=== PATIENT | female | born 1985 | race Caucasian/White ===

== ENCOUNTER 2019-08-30 17:55 | Observation (INO) | payer OTHER ==
[~2019-08-30] VITALS: Ht 167.6 cm; Wt 69.7 kg
[2019-08-30 17:57] VITALS: BP 124/57
[2019-08-30] MEDS ORDERED: LOMOTIL 2.5-0.01 TAB PO (18:02)
[2019-08-30] MEDS ORDERED: DEXAMETHASONE4 MG PO (18:02)
[2019-08-30] MEDS ORDERED: ONDANSETRON ODT8 MG PO (18:03)
[2019-08-30] MEDS ORDERED: ASA81BEC PO (18:03)
[2019-08-30] MEDS ORDERED: LIDOCAINE 2%2 %/5 GM TOP (18:03)
[2019-08-30] MEDS ORDERED: COMPAZINE10 MG PO (18:03)
[2019-08-30] MEDS ORDERED: OMEPRAZOLE 20 M20 M1 PO (18:04)
[2019-08-30] MEDS ORDERED: PERJETA420 MG/14 IV (18:05)
[2019-08-30] MEDS ORDERED: [UNRECOGNIZED DRUG - OTHER] IV (18:05)
[2019-08-30] MEDS ORDERED: TAXOTERE20 MG/1 ML IV (18:06)
[2019-08-30] MEDS ORDERED: CARBOPLATIN IV (18:06)
[2019-08-30 19:03] LABS: HEMATOCRIT 36.5 % (37.0-47.0); HEMOGLOBIN 12.4 gm/dL (12.0-15.0); MCH 30.1 pg (26.0-34.0); MCHC 34.1 g/dL (28.0-37.0); MCV 88.3 fL (80.0-100.0); MPV 9.5 fl. (7.2-11.1); NUCLEATED RBCS 0 /100WBC; PLATELET COUNT* 184 thou/uL (150-400); RBC 4.14 mil/uL (4.20-5.00); RDW-CV 16.2 % (10.5-14.5); WBC 3.4 thou/uL (4.0-11.0)
[2019-08-30 19:16] LABS: CALCIUM 8.2 mg/dL (8.5-10.1); CREATININE 0.8 mg/dL (0.6-1.3); POTASSIUM 3.5 mmol/L (3.5-5.1)
[2019-08-30 19:20] LABS: ALBUMIN 3.8 g/dL (3.4-5.0); TOTAL BILIRUBIN 1.1 mg/dL (<0.1-1.0); TOTAL PROTEIN 7.3 g/dL (6.4-8.2)
[2019-08-30 19:47] LABS: ABSOLUTE EOSINOPHILS 0.1 thou/uL (0.0-0.7); ABSOLUTE MONOCYTES 0.1 thou/uL (0.0-1.2); ABSOLUTE NEUTROPHILS 2.2 thou/uL (1.6-8.1); ANISOCYTOSIS Occasional; PLATELET ESTIMATE ADEQUATE
[2019-08-30 21:23] VITALS: BP 99/59
[2019-08-30 22:12] VITALS: BP 107/51
[2019-08-31] VITALS (8 sets, daily range): BP systolic 95–127; BP diastolic 47–72
--- NOTE | 2019-08-31 06:21 | NUR ---
PATIENT PROGRESSING TOWARDS GOALS: NAUSEA MANAGED WITH MEDICATION PER MAR AND RELAXATION. PATIENT DENIES PAIN AND DISCOMFORT. NO SYNCOPAL EPISODES OVERNIGHT. CALL LIGHT WITHIN REACH
[2019-08-31] MEDS ORDERED: PHENERGAN 25 MG25 M1 PO (12:05)
--- NOTE | 2019-08-31 13:52 | 2DMMODE ---
[place] [address] 2 D/M-MODE ECHOCARDIOGRAM Name: GIANLUCA JANG Room: [address] MEmelynREmelyn#: [id number] Admission: 08/30/19 Attend Phys: Steve Horn, Discharge: Date of : 83 Date of Service: 08/31/19 1352 Report #: [id number] THIS REPORT FOR: cc: DIMA SHEN RN BAKER PIE DIMA SHEN RN BAKER PIE Satish Mast MD [facility] ~ APPROVED REPORT Study performed: 08/31/2019 10:13:42 EXAM: Comprehensive 2D, Doppler, and color-flow Echocardiogram Patient Location: In-Patient Room #: [facility] Status: routine BSA: 1.80 HR: 61 bpm BP: 95/47 mmHg Rhythm: NSR Other Information Study Quality: Good Indications Syncope breast cancer 2D Dimensions IVSd: 11.11 (7-11mm) LVOT Diam: 19.55 (18-24mm) LVDd: 44.72 mm PWd: 9.71 (7-11mm) Ascending Ao: 28.10 (22-36mm) LVDs: 29.73 (25-40mm) Aortic Root: 30.90 mm Volumes Left Atrial Volume (Systole) LA ESV Index: 20.20 mL/m2 Aortic Valve AoV Peak Rad.: 1.11 m/s AO Peak Gr.: 4.95 mmHg LVOT Max P.21 mmHg AO Mean Gr.: 2.33 mmHg LVOT Mean P.52 mmHg LVOT Max V: 0.90 m/s AO V2 VTI: 17.59 cm LVOT Mean V: 0.57 m/s INDIRA (VTI): 2.79 cm2 LVOT V1 VTI: 16.37 [place] [address] 2 D/M-MODE ECHOCARDIOGRAM Name: GIANLUCA JANG Room: [address]#: [id number] Admission: 08/30/19 Attend Phys: Steve Horn, Discharge: Date of : 83 Date of Service: 08/31/19 1352 Report #: [id number] Mitral Valve E/A Ratio: 1.44 MV Decel. Time: 285.93 ms MV E Max Rad.: 0.67 m/s MV PHT: 82.92 ms MVA (PHT): 2.65 cm2 TDI E/Lateral E': 5.58 E/Medial E': 5.58 Medial E' Rad.: 0.12 m/s Lateral E' Rad.: 0.12 m/s Pulmonary Valve PV Peak Rad.: 0.78 m/s PV Peak Gr.: 2.45 mmHg Tricuspid Valve RAP Estimate: 5.00 mmHg TR Peak Gr.: 14.26 mmHg RVSP: 19.00 mmHg PA Pressure: 19.00 mmHg Left Ventricle The left ventricle is normal size. There is normal LV segmental wall motion. There is normal left ventricular wall thickness. Left ventricular systolic function is normal. The left ventricular ejection fraction is within the normal range. LVEF is 55%. The left ventricular diastolic function is normal. Right Ventricle The right ventricle is normal size. The right ventricular systolic function is normal. Atria The left atrium size is normal. The right atrium size is normal. Aortic Valve Mild aortic valve sclerosis. No aortic regurgitation is present. There is no aortic valvular stenosis. Mitral Valve The mitral valve is normal in structure. Trace mitral regurgitation. No evidence of mitral valve stenosis. Tricuspid Valve The tricuspid valve is normal in structure[place] [address] 2 D/M-MODE ECHOCARDIOGRAM Name: GIANLUCA JANG Room: [address]#: [id number] Admission: 08/30/19 Attend Phys: Steve Horn, Discharge: Date of : 83 Date of Service: 08/31/19 1352 Report #: [id number] regurgitation. No pulmonary hypertension. Pulmonic Valve The pulmonary valve is normal in structure. There is no pulmonic valvular regurgitation. Great Vessels The aortic root is normal in size. IVC is normal in size and collapses >50% with inspiration. Pericardium There is no pericardial effusion. <Conclusion> The left ventricle is normal size. There is normal left ventricular wall thickness. Left ventricular systolic function is normal. The left ventricular ejection fraction is within the normal range. LVEF is 55%. The right ventricle is normal size. The left atrium size is normal. Mild aortic valve sclerosis. No aortic regurgitation is present. There is no aortic valvular stenosis. The mitral valve is normal in structure. IVC is normal in size and collapses >50% with inspiration. There is no pericardial effusion. There is normal LV segmental wall motion. <ELECTRONICALLY SIGNED> By: Satish Mast MD, FACC 08/31/19 1352 135 135 Satish Mast MD, FACC /INF
--- NOTE | 2019-08-31 14:04 | NUR ---
Pt is A&O. Resides at home with her . Independent. No DME. Hx of HH or SNF. Goal is home at dc, no needs anticipated. Onc to see prior to dc.
--- NOTE | 2019-08-31 15:05 | EKG ---
[place] [address] ELECTROCARDIOGRAM REPORT Name: GIANLUCA JANG Room: [address]R.#: [id number] Admission: 08/30/19 Attend Phys: Steve Horn, Discharge: Date of : 83 Date of Service: 08/30/19 1803 Report #: [id number] THIS REPORT FOR: //name// [facility] ED Test Date: 2019-08-30 Test Time: 18:03:48 Pat Name: GIANLUCA JANG Department: Room: [facility] Gender: F Bobtailer: CCD : 1985 Requested By: Mandy Cason Order Number: [id number] MD: Satish Mast Measurements Intervals [place] Rate: 57 P: 39 [place]: 160 QRS: 34 QRSD: 92 T: 57 QT: 452 QTc: 440 Interpretive Statements Sinus rhythm No previous ECG available for comparison Electronically Signed On 08-31-2019 15:05:26 CDT by Satish Mast [email or web address] <ELECTRONICALLY SIGNED> By: Satish Mast MD, [facility] 08/31/19 1505 1803 180 Satish Mast MD, [facility] /EPI
[2019-09-01 03:50] VITALS: BP 108/61
[2019-09-01 04:12] LABS: ABSOLUTE EOSINOPHILS 0.2 thou/uL (0.0-0.7); ABSOLUTE LYMPHOCYTES 0.5 thou/uL (0.8-5.3); ABSOLUTE MONOCYTES 0.4 thou/uL (0.0-1.2); ABSOLUTE NEUTROPHILS 2.8 thou/uL (1.6-8.1); BASOPHILS 0.3 %; HEMATOCRIT 35.9 % (37.0-47.0); HEMOGLOBIN 12.1 gm/dL (12.0-15.0); LYMPHOCYTES 12.7 %; MCH 29.3 pg (26.0-34.0); MCHC 33.7 g/dL (28.0-37.0); MONOCYTES 11.2 %; MPV 9.4 fl. (7.2-11.1); NUCLEATED RBCS 0 /100WBC; PLATELET COUNT* 193 thou/uL (150-400); POLYS 71.8 %; RBC 4.12 mil/uL (4.20-5.00); RDW-CV 16.2 % (10.5-14.5); WBC 3.9 thou/uL (4.0-11.0)
[2019-09-01 04:22] LABS: CALCIUM 8.9 mg/dL (8.5-10.1); CREATININE 0.9 mg/dL (0.6-1.3); POTASSIUM 3.9 mmol/L (3.5-5.1)
--- NOTE | 2019-09-01 05:33 | NUR ---
NO ACUTE CHANGES THROUGHOUT SHIFT. ALL ROUNDINGS COMPLETED, ALL NEEDS MET, FULL ASSESSMENT COMPLETED CHARTED. PERSONAL ITEMS AND CALL LIGHT IN REACH.
[2019-09-01 07:50] VITALS: BP 108/69
[2019-09-01 10:24] VITALS: BP 108/69
--- NOTE | 2019-09-01 11:00 | NUR ---
PATIENT DISCHARGED TO HOME WITH . PORT A CATH DEACCESSED AND IV DC'D. UP AD [facility]. TOLERATING DIET, NO COMPLAINTS OF NAUSEA. PATIENT VERBALIZED UNDERSTANDING OF PAPERWORK AND SCRIPTS SENT TO [facility]. PATIENT TAKEN OUT VIA WHEELCHAIR WITH ALL BELONGINGS.
[2019-09-01] MEDS ORDERED: LORAZEPAM 0.50.5 MG PO (11:09)
== END 2019-09-01 11:30 | disposition home or self-care (01) ==
LOC: M.ERS 17:55 → M.TBA-ER 20:45 → M.2W 20:45
PROVIDERS: Internal Medicine; Nurse Practitioner Family; ADMIT Internal Medicine; ATTEND Internal Medicine
DX: Z03.818 Encounter for observation for suspected exposure to other biological agents ruled out (principal); R11.2 Nausea with vomiting, unspecified; J45.909 Unspecified asthma, uncomplicated; R19.7 Diarrhea, unspecified; Z85.43 Personal history of malignant neoplasm of ovary; Z85.3 Personal history of malignant neoplasm of breast

== ENCOUNTER → 2019-12-20 | Outpatient (CLI) | payer OTHER ==
[~2019-12-20] MED LIST: ASA81BEC PO; CARBOPLATIN IV; CLARITIN10 MG PO; COMPAZINE10 MG PO; COREG6.25 MG PO; DEXAMETHASONE4 MG PO; IBUPROFEN 600600 M1 PO; LIDOCAINE 2%2 %/5 GM TOP; LOMOTIL 2.5-0.01 TAB PO; LOPERAMIDE 2 MG2 M1 PO; LORAZEPAM 0.50.5 MG PO; NEURONTIN 300M300 M2 PO; OMEPRAZOLE 20 M20 M1 PO; ONDANSETRON ODT8 MG PO; OXYCODONE HCL 55 MG PO; PERJETA420 MG/14 IV; PHENERGAN 25 MG25 M1 PO; TAXOTERE20 MG/1 ML IV; TYLENOL EXTRA500 MG PO; [UNRECOGNIZED DRUG - OTHER] IV
== END | disposition home or self-care (01) ==
LOC: M.NUC 13:03 → M.LAB 13:03 → M.NUC 12-23 08:00
PROVIDERS: ATTEND Surgery
DX: N63.10 Unspecified lump in the right breast, unspecified quadrant (principal); R92.1 Mammographic calcification found on diagnostic imaging of breast; Z85.3 Personal history of malignant neoplasm of breast; Z98.890 Other specified postprocedural states; Z79.899 Other long term (current) drug therapy; Z88.0 Allergy status to penicillin; Z20.828 Contact with and (suspected) exposure to other viral communicable diseases

== ENCOUNTER → 2019-12-23 | Day surgery (SDC) | payer OTHER ==
--- NOTE | ~2019-12-23 | OP ---
[address] [address] OPERATIVE REPORT Name: GIANLUCA JANG Room: [facility]#: [id number] Admission: 12/23/19 Attend Phys: Sharla Rico MD Discharge: Date of : 83 Report #: [id number] THIS REPORT FOR: //name// cc: Sharla Rico MD, Mindi S. MD ~ CC: Sharla Rico DATE OF SERVICE: 12/23/2019 PREOPERATIVE DIAGNOSIS: Malignant neoplasm overlapping sites, right female breast, status post neoadjuvant chemotherapy. POSTOPERATIVE DIAGNOSIS: Malignant neoplasm overlapping sites, right female breast, status post neoadjuvant chemotherapy. PROCEDURES: 1. Injection of blue dye. 2. Right breast seed localized lumpectomy. 3. Right axillary sentinel lymph node biopsy. SURGEON: Sharla Rico MD DIAL BUFFER: None. ANESTHESIA: General anesthesia. ESTIMATED BLOOD LOSS: 1 mL. COMPLICATIONS: None. SPECIMENS: 1. Right breast cancer. 2. Right breast new medial margin. 3. Right breast new inferior margin. 4. Right breast new lateral margin. 5. Right breast new superior margin. 6. Right breast new posterior margin. 7. Right breast new additional superior posterior margin. 8. Right axillary sentinel lymph node #1, hot, blue. 9. Right axillary sentinel lymph node #2, blue, not hot. 10. Right axillary sentinel lymph node #3, blue, not hot. 11. Right axillary sentinel lymph node #4, blue, not hot. COMPLICATIONS: None. FINDINGS: Biopsy clip and the localizer radiofrequency clip as well as the [facility] [address] [place] [address] OPERATIVE REPORT Name: GIANLUCA JANG Room: [facility]#: [id number] Admission: 12/23/19 Attend Phys: Sharla Rico MD Discharge: Date of : 83 Report #: [id number] biopsy clip in the specimen. Other incision 5 cm in length, 6 cm from nipple. Inframammary fold at 6 o'clock position. INDICATIONS: The patient is a 34-year-old female who had a lump in her right breast for multiple months. She thought it was benign and finally noticed it enlarging with associated skin and nipple change. Imaging 07/15/2019 showed a 4 cm indistinct hypodense mass at the 6 o'clock right breast, 2 cm from nipple with a deep margin near the pectoralis muscle and no obvious plane. She had 1 lymph node with cortical thickening noted. 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 HER2 was positive and ki-67 was 27.5%. MRI 07/22/2019 confirmed the primary mass at the 6-7 o'clock right breast, 3 cm from nipple with associated non-mass enhancement, totaling 5.5 cm in max dimension and normal-appearing nodes and contralateral breast. She underwent neoadjuvant chemotherapy, which she finished on 11/21/2019 and which was helpful for breast conservation therapy. The patient's MRI on 11/29/2019 at [place] showed complete imaging response. She was interested in lumpectomy. Risks and benefits for this were discussed with the patient and delineated in the H and P and she agreed to proceed. DESCRIPTION OF PROCEDURE: The patient was brought to the operating room after informed consent had been obtained. She was placed under general anesthesia in the supine position with the right arm extended. Days prior to procedure, she was taken to mammogram for seed localization of the previous biopsy clip. The morning of surgery, she was taken to Nuclear Medicine for injection of descent for the sentinel node portion of the case with technetium-99 labeled sulfur colloid. The right breast and axilla were prepped and draped in normal sterile manner. Prior to all skin incisions, a combination of 1% lidocaine plain and 0.5% Marcaine with epinephrine was used. The decision was made to proceed with an inframammary skin incision. This incision was made with a knife and deepened into the subcutaneous tissues using the Bovie electrocautery. The site of highest activity was marked out at the skin level with the use of the Faxitron localizer. The breast tissue was dissected in the superficial mastectomy plane superiorly toward the nipple. The area of activity was picked up just below the areola. It was very superficial in location as well right in the subcutaneous tissue. The Bovie electrocautery was used to excise a lump of tissue surrounding the previous biopsy site. Of note, imaging showed a few calcifications extending to the superior, lateral, posterior margin. Because it was small and those calcifications did extend to the margin, I did proceed with excision of margins. Attention was first turned to the medial margin. The Bovie electrocautery was used to excise a thin rim of tissue to encompass the new medial margin. This was repeated in the inferior, lateral, superior and posterior margins. All of these were labeled for orientation purposes. When the specimen image was examined, I elected to take additional tissue in the superior and posterior regions and this was excised with the Bovie electrocautery and labeled for orientation purposes. The wound bed was then copiously irrigated with normal saline. Four Ligaclips were placed in the [place] [address] OPERATIVE REPORT Name: GIANLUCA JANG Room: [facility].#: [id number] Admission: 12/23/19 Attend Phys: Sharla Rico MD Discharge: Date of : 83 Report #: [id number] lumpectomy bed to oliver the site. The deeper tissues were reapproximated with interrupted 3-0 Vicryl sutures. The breast tissue was mobilized in all directions to facilitate closure of the space. The deep dermal layers were then closed with interrupted 3-0 Vicryl sutures and skin was closed with 4-0 Monocryl in a subcuticular manner. Attention was then turned to the right axilla. The site of highest activity in the axilla was attempted to be identified, but there was not one area of high counts noted. The skin incision was then made a few centimeters below the hair bearing area with a knife. This was deepened into the subcutaneous tissues using the Bovie electrocautery. A Weitlaner retractor was placed. The axillary fascia was divided and dissection ensued. The axilla was extremely fibrotic and very difficult to dissect. There were some blue lymphatics that were noted and these were traced to some lymph nodes, which seemed to have blue dye uptake. These were isolated very difficultly with the assistance of the LigaSure device. It was very difficult to delineate what was fibrotic tissue versus distinct lymphoid tissue versus connective tissue. Once this first lymph node was removed, it was handed off and sent for frozen section. I then returned my attention to the axilla. The Ofelia probe was used, but did not have a reliable uptake with no spikes in counts noted. I proceeded with exploration for blue lymph nodes. I was able to find another blue lymph node. This was isolated using assistance of the LigaSure device. Again, it was very difficult due to very fibrotic tissue. Once completely removed, counts were obtained and this was sent off as sentinel node #2. It did not have high counts. This was then repeated with 2 more additional nodes, both of which had blue dye, but no obvious radiotracer uptake. The axilla was copiously irrigated with normal saline. There were no additional blue dyed nodes noted and then the [place] probe was not helpful in the axilla. The deep tissues were reapproximated with a single interrupted suture of 3-0 Vicryl. The deep dermal layers were closed with interrupted 3-0 Vicryl sutures and skin was closed with 4-0 Monocryl in a subcuticular manner. The wounds were both dressed with Dermabond dressing. The patient tolerated the procedure well. Sponge, lap and needle counts were correct x 2 at the end of the procedure. She was transferred to recovery in stable condition. By: [id number] Rico MD /speedy
--- NOTE | 2019-12-27 17:06 | PATH ---
[address] [address] PATHOLOGY RPT PROCEDURE Name: GIANLUCA JANG Room: [facility]#: [id number] Admission: 12/23/19 Date of : 83 Discharge: Report #: [id number] Path Case #: [id number] [facility] Accession Number: [id number] . 01 Material submitted: . PART A: breast - RIGHT BREAST STITCH ZHENG NEW MARGIN MEDIAL. Modifiers: right, medial PART B: breast - RIGHT BREAST STITCH ZHENG NEW MARGIN INFERIOR. Modifiers: right, inferior PART C: breast - RIGHT BREAST STITCH ZHENG NEW MARGIN LATERAL. Modifiers: right, lateral PART D: breast - RIGHT BREAST STITCH ZHENG NEW MARGIN SUPERIOR. Modifiers: right PART E: breast - RIGHT BREAST STITCH ZHENG NEW MARGIN POSTERIOR. Modifiers: right, posterior PART F: breast - RIGHT BREAST ADDITIONAL SUPERIOR POSTERIOR MARGIN. Modifiers: right, superior, posterior PART G: lymph node - RIGHT AXILLARY SENTINEL LYMPH NODE #1 FS. Modifiers: right PART H: axillary tail of breast - RIGHT AXILLARY SENTINEL LYMPH NODE #2 FS. Modifiers: right PART I: axillary tail of breast - RIGHT AXILLARY SENTINEL LYMPH NODE #3. Modifiers: right PART J: axillary tail of breast - RIGHT AXILLARY SENTINEL LYMPH NODE #4. Modifiers: right PART K: breast - RIGHT BREAST CANCER. Modifiers: right . 01 Clinical history: . LUMPECTOMY RIGHT BREAST CANCER . 02 Frozen section diagnosis: . FROZEN SECTION DIAGNOSIS: (Jono Levy M.D.) . FSG1. Right axillary sentinel lymph node, hot, blue, max count 2087: - Benign lymph node with prominent black pigment typical of tattooing and no evidence of treated malignancy. . FSH1. Right axillary sentinel lymph node, blue, not hot: - Benign lymph node with prominent black pigment typical of tattooing and no evidence of treated malignancy. . FSI1. Right axillary sentinel lymph node, blue, not hot: - Benign lymph node with prominent black pigment typical of tattooing and no evidence of treated malignancy. . FSJ1. Right axillary sentinel lymph node 15: - Benign lymph node with prominent black pigment typical of tattooing and no evidence of treated malignancy. [address] [address] PATHOLOGY RPT PROCEDURE Name: LAINEGIANLUCA Lindsay Room: [facility]#: [id number] Admission: 12/23/19 Date of : 83 Discharge: Report #: [id number] Path Case #: [id number] . Frozen sections performed at [facility], [address] [place] [id number]. . . FROZEN SECTION GROSS DESCRIPTION: Specimen G is received fresh from the operating room accompanied by a label marked "Gianluca Jang, right axillary sentinel lymph node, hot, blue, max count 2087" and consists of a segment of fatty tissue measuring 2.5 x 1.[address] Rico notes this patient has breast cancer with neoadjuvant therapy and there is axillary adenopathy palpably very firm and she requested intraoperative evaluation. The tissue is dissected and there is a vague nodule measuring 1.7 x 0.8 x 0.8 cm. This nodule is bisected and a ta-black pigmentation is noted within it and both segments are submitted for frozen studies with the remainder of that tissue frozen submitted in cassette G1 and the remainder of the entire specimen submitted in cassette G2. . Specimen H is received fresh from the operating room accompanied by a label marked "Gianluca Jang, right axillary sentinel lymph node, blue, not hot" and consists of a segment of fatty tissue measuring 3.5 x 1.0 x 0.6 cm. The tissues are dissected and a vague nodule is present which measures 2.0 x 1.5 x 0.6 cm. The nodule is bisected and entirely submitted for frozen studies as H1 with the remainder of that tissue frozen submitted in cassette H1. The remainder of the entire specimen is submitted in cassette H2. . Specimen I is received fresh from the operating room accompanied by a label marked "Gianluca Jang, right axillary sentinel lymph node, blue, not hot" and consists of a segment of fatty tissue measuring 2.0 x 1.6 x 0.5 cm. Dissection results in a vague nodule spanning 1.4 x 0.9 x 0.6 cm and it is bisected and entirely submitted for frozen studies with the remainder of that tissue frozen submitted in cassette I1. The remainder of the entire specimen is submitted in cassette I2. . Specimen J is received fresh from the operating room accompanied by a label marked "Gianluca Jang, right axillary sentinel lymph node 15 (0308)" and consists of a segment of fatty tissue measuring 3.5 x 2.8 x 0.8 cm. Dissection results in a vague nodular area spanning 2.6 x 1.5 x 1.0 cm and bisection reveals some lymphoid tissue in one half. This half is submitted for frozen studies with the remainder of the tissue frozen submitted in cassette J1 and the remainder of the entire specimen submitted in cassettes J2 and J3. (TC/alice; 12/23/2019) BSM/LBDanielle . 03 Diagnosis: A. Right breast new margin medial: [address] [place] [address] PATHOLOGY RPT PROCEDURE Name: GIANLUCA JANG Room: [facility]#: [id number] Admission: 12/23/19 Date of : 83 Discharge: Report #: [id number] Path Case #: [id number] - Benign breast tissue with mild chronic inflammation and luminal calcifications, negative for atypia. . B. Right breast new margin inferior: - Benign breast tissue, negative for atypia. . C. Right breast new margin lateral: - Benign fat. . D. Right breast new margin superior: - Benign breast tissue with mild chronic inflammation, negative for atypia. . E. Right breast new margin posterior: - Benign breast tissue with mild chronic inflammation, negative for atypia. . F. Right breast additional superior posterior margin: - Benign breast tissue with mild chronic inflammation, negative for atypia. . G. Right axillary sentinel lymph node #1 (hot, blue, max count 2086): - One benign lymph node with prominent black pigment typical of tattooing and no evidence of treated malignancy. See comment. . H. Right axillary sentinel lymph node #2 (blue, not hot): - One benign lymph node with prominent black pigment typical of tattooing and no evidence of treated malignancy. See comment. . I. Right axillary sentinel lymph node #3 (blue, not hot): - One benign lymph node with prominent black pigment typical of tattooing and no evidence of treated malignancy. See comment. . J. Right axillary sentinel lymph node #4 (41;1384): - One benign lymph node with prominent black pigment typical of tattooing and no evidence of treated malignancy. See comment. . K. Tissue submitted as "right breast cancer": - Breast tissue with evidence of therapy including fibrosis, chronic inflammation, histiocytes and stromal calcification in association with localization seed and "ring-shaped biopsy clip", negative for malignancy and atypia. LBQ 12/27/2019 1202 Local . 03 Comment: Properly controlled keratin AE1/AE3 immunohistochemical stains performed on specimens G through J show no evidence of [place] [address] PATHOLOGY RPT PROCEDURE Name: [facility]IANLUCA JANG [id number] Admission: 12/23/19 Date of : 83 Discharge: Report #: [id number] Path Case #: [id number] This patient had a right breast at 6:00 ultrasound guided biopsy performed on 07/20/2019 which showed invasive ductal carcinoma, grade 2, at least 1.2 cm in linear extent, ductal carcinoma in situ, high nuclear grade, comedo and cribriform types with calcifications with tumor markers performed on A2 results as follows: ER 17%, FL 0.40%, Her2 over expressed/3+ and FISH-positive/amplified, Ki67 27.5% ([facility] specimen [id number]). Per review of Dr. Rico's operative report dated 12/23/2019, the patient received neoadjuvant chemotherapy and MRI on 11/29/2019 at [facility] showed complete imaging response. (TC/db; 12/27/2019) . 03 Electronically signed: . Daniel Levy MD, Pathologist NPI- [id number] . 01 Gross description: . A. Received in formalin labeled "Laine, Gianluca, right breast (stitch zheng new margin) medial margin" is an oriented portion of yellow-andrew fibroadipose tissue measuring 0.9 x 0.8 x 0.5 cm. There is a suture on one aspect, indicating the true margin. This aspect is inked black. The opposite aspect is inked blue. The specimen is sectioned and submitted entirely in A1. . B. Received in formalin labeled "Laine, Gianluca, right breast (stitch zheng new margin) inferior margin" is an oriented portion of yellow-andrew fibroadipose tissue measuring 1.2 x 0.9 x 0.6 cm. There is a suture on one aspect, indicating the true margin. This aspect is inked black. The opposite aspect is inked blue. The specimen is sectioned and submitted entirely in B1. . C. Received in formalin labeled "Laine, Gianluca, right breast (stitch zheng new margin) lateral margin" is an oriented portion of yellow-andrew fibroadipose tissue measuring 1.1 x 1.0 x 0.4 cm. There is a suture on one aspect, indicating the true margin. This aspect is inked black. The opposite aspect is inked blue. The specimen is sectioned and submitted entirely in C1. . D. Received in formalin labeled "Laine, Gianluca, right breast (stitch zheng new margin) superior margin" is an oriented portion of yellow-andrew fibroadipose tissue measuring 0.7 x 0.7 x 0.3 cm. There is a suture on one aspect, indicating the true margin. This aspect is inked black. The opposite aspect is inked blue. The specimen is sectioned and submitted entirely in D1. . E. Received in formalin labeled "Gianluca Jang, right breast (stitch zheng new margin) posterior margin" is an oriented portion of yellow-andrew fibroadipose tissue measuring 1.2 x 1.2 x 0.7 cm. There is a suture on one aspect, indicating the true margin. This aspect is inked black. The opposite aspect is inked blue. The specimen [place] [address] PATHOLOGY RPT PROCEDURE Name: GIANLUCA JANG S Room: [facility]#: [id number] Admission: 12/23/19 Date of : 83 Discharge: Report #: [id number] Path Case #: [id number] entirely in E1. . F. Received in formalin labeled "Gianluca Jang, right breast additional superior posterior margin" is an oriented portion of yellow-andrew fibroadipose tissue measuring 2.2 x 1.4 x 1.2 cm. There is a suture on one aspect, which is not oriented on the container or requisition, and is presumed as the true margin. This aspect is inked black. The opposite aspect is inked blue. The specimen is sectioned and submitted entirely in F1-F2. . G. SEE FROZEN SECTION GROSS DESCRIPTION. . H. SEE FROZEN SECTION GROSS DESCRIPTION. . I. SEE FROZEN SECTION GROSS DESCRIPTION. . J. SEE FROZEN SECTION GROSS DESCRIPTION. . K. Received in formalin labeled "Gianluca Jang, right breast cancer" is an oriented breast lumpectomy specimen weighing 5 g. There is a short suture on one aspect, a long suture on one aspect, and a double suture on one aspect. The sutures are not oriented on the container or requisition, but are presumed short superior, long lateral, double deep, which is consistent with laterality of specimen. The specimen measures 3.2 cm from anterior to posterior, 3.1 cm from medial to lateral, and 1.6 cm from superior to inferior. The specimen is inked as follows: Superior-red, inferior-blue, anterior-green, posterior-black, lateral-orange, medial-yellow. The specimen is serially sectioned from medial to lateral and into 8 slices to reveal a andrew-white stellate mass extending from slices 4-8 and measuring 2.1 x 1.5 x 1.2 cm. The mass displays a localization seed in slice 4-5 and a ring-shaped biopsy clip in slice 8. The mass is located to the margins as follows: 1.5 cm to medial, grossly abuts lateral, grossly abuts inferior, 0.1 cm to posterior, less than 0.1 cm to superior, and 0.3 cm to anterior. The uninvolved tissue is yellow-andrew and lobulated. The specimen is submitted entirely as follows: K1 slice 1, medial margin, perpendicular sections K2-K7 middle of specimen submitted sequentially from medial to lateral K8 slice 8, lateral margin, perpendicular sections The specimen is removed from the patient at 1030 and placed in formalin at an unspecified time on 12/23/2019. The specimen is removed from formalin at 1850 on 12/25/2019. ([facility]; 12/25/2019) [facility] 12/27/2019 1131 Local . 03 Pathologist provided ICD-10: N61.0, C50.911 . 03 CPT . 840940, 988482, 131929, 178920, 458788, 273136, 289107, 563017, 110764, 839777, 114472, G76176, 767203, 151104, 282429, [id number] [place] [address] PATHOLOGY RPT PROCEDURE Name: GIANLUCA JANG Room: [facility]#: [id number] Admission: 12/23/19 Date of : 83 Discharge: Report #: [id number] Path Case #: [id number] Specimen Comment: A courtesy copy of this report has been sent to [phone] Specimen Comment: Report sent to Performed at: 01 [facility] [place] [address], [place], [place] [id number] MD Zana Gaviria MD Phone: [phone] Performed at: 02 [facility] [place] [address] [place] [id number] MD Daniel Levy MD Phone: [phone] Performed at: 03 [facility] [place] [address] [address], [place] [id number] MD Daniel Levy MD Phone: [phone]
== END | disposition home or self-care (01) ==
LOC: M.SUR 05:30
PROVIDERS: ATTEND Surgery
DX: C50.811 Malignant neoplasm of overlapping sites of right female breast (principal); R59.0 Localized enlarged lymph nodes; Z98.890 Other specified postprocedural states; Z79.899 Other long term (current) drug therapy; Z88.0 Allergy status to penicillin